=== PATIENT | female | born 1990 | race African-American/Black ===

== ENCOUNTER 2019-05-02 23:44 | Emergency (ER) | payer SELFPAY ==
[~2019-05-02] VITALS: Ht 172.7 cm; Wt 122.5 kg
[2019-05-03] MEDS ORDERED: FAMOTIDINE 20 MG/2 ML VIAL IV STA (00:07)
[2019-05-03] MEDS ORDERED: SODIUM CHLORIDE 0.9% 50ML 0 ML ONE (00:25)
[2019-05-03] MEDS ORDERED: IOPAMIDOL 370 MG/ML 200 ML INFUS..BTL INJ ONE (00:25)
[2019-05-03] MEDS ORDERED: ONDANSETRON HCL INJ 2MG/ML 2ML 2 MG/ML VIAL ONE ×2 (01:14→02:06)
[2019-05-03] MEDS ORDERED: FAMOTIDINE 20 MG/2 ML VIAL IV ONE ×2 (01:14)
[2019-05-03] MEDS ORDERED: ONDANSETRON HCL INJ 2MG/ML 2ML 2 MG/ML VIAL IV STA ×2 (01:29→01:46)
--- NOTE | 2019-05-03 01:32 | Diagnostic Imaging Report ---
EXAM: CT Abdomen and Pelvis WITHOUT contrast INDICATION: Abdominal pain, nausea, vomiting, epigastric pain COMPARISON: None. TECHNIQUE: Abdomen and pelvis were scanned utilizing a multidetector helical scanner from the lung base to the pubic symphysis without administration of IV contrast. Absence of intravenous contrast decreases sensitivity for detection of focal lesions and vascular pathology. Coronal and sagittal reformations were obtained. Routine protocol was performed. IV CONTRAST: None ORAL CONTRAST: None COMPLICATIONS: None RADIATION DOSE: Total DLP: 857 mGy*cm Estimated effective dose: (DLP x 0.015 x size factor) mSv CTDIvol has been reviewed. It is below the limits set by the Radiation Protocol Committee (RPC). Dose modulation, iterative reconstruction, and/or weight based adjustment of the mA/kV was utilized to reduce the radiation dose to as low as reasonably achievable. FINDINGS: LINES and TUBES: None. LOWER THORAX: Unremarkable HEPATOBILIARY: No focal hepatic lesions. No biliary ductal dilation. GALLBLADDER: No radio-opaque stones or sludge. No wall thickening. SPLEEN: No splenomegaly. PANCREAS: No focal masses or ductal dilatation. ADRENALS: No adrenal nodules KIDNEYS/URETERS: No hydronephrosis. No cystic or solid mass lesions. No stones. Minimal excreted contrast in the kidneys and in the ureters. GI TRACT: No abnormal distention, wall thickening, or evidence of bowel obstruction. Appendix is normal. PELVIC ORGANS/BLADDER: Calcified uterine fibroids. Trace hyperdense contrast in the bladder lumen . LYMPH NODES: No lymphadenopathy. VESSELS: Unremarkable. PERITONEUM / RETROPERITONEUM: No free air or fluid. BONES: Unremarkable. SOFT TISSUES: Unremarkable. IMPRESSION: No acute abnormality on this noncontrast abdominal CT. Calcified uterine fibroids. Signed by: Elmo Dodge DO on 05/03/2019 1:28 AM
[2019-05-03] MEDS ORDERED: KETOROLAC TROMETHAMINE 30 MG/ML VIAL IV STA (01:46)
[2019-05-03] MEDS ORDERED: KETOROLAC TROMETHAMINE 30 MG/ML VIAL ONE (02:06)
[2019-05-03 04:13] VITALS: BP 142/80
== END 2019-05-03 02:28 | disposition home or self-care (01) ==
LOC: FSED 23:44
DX: R10.13 Epigastric pain (principal); R11.2 Nausea with vomiting, unspecified
CPT/HCPCS: 74176; 80048; 80076; 81003; 81025; 83518 ×2; 85025; 87400; 96374; 96375; 96376; 99284; J1885; J2405; Q9967